=== PATIENT | male | born 1980 | race African-American/Black ===

== ENCOUNTER 2021-01-21 08:53 | Outpatient (CLI) | payer OTHER | END 2021-01-21 08:54 | disposition home or self-care (01) | LOC: CSHRAD 08:53 | PROVIDERS: ATTEND Psychiatry & Neurology Neurology | DX: M54.5 Low back pain (principal); M47.816 Spondylosis without myelopathy or radiculopathy, lumbar region; Z98.890 Other specified postprocedural states | CPT/HCPCS: 72100 ==

== ENCOUNTER 2022-10-11 14:18 | Emergency (ER) | payer MEDICARE ==
[2022-10-11 14:47] LABS: Bilirubin Neg (Negative); Blood, Urine 10 (Negative); Clarity Clear (Clear); Glucose, Urine (Dipstick) Normal (Negative); Ketone, Urine Negative (Negative); Leukocyte Negative (Negative); Nitrite Negative (Negative); Protein, Urine (Dipstick) 30 mg/dl (Neg-Trace)
[2022-10-11 14:55] LABS: Amphetamine Not Detected (NotDetected); Bacteria/HPF None Seen HPF (None Seen); Barbiturates Screen Not Detected (NotDetected); Benzodiazepine Screen Not Detected (NotDetected); Cocaine Metabolite Screen Not Detected (NotDetected); Methadone Not Detected (NotDetected); Methamphetamine Not Detected (NotDetected); Opiate Screen Not Detected (NotDetected); Oxycodone Screen Not Detected (NotDetected); Phencyclidine (PCP) Not Detected (NotDetected); RBC/HPF 0-3 HPF (0-3); Squamous Epithelial 0-3 HPF (0-3); THC/Cannabinoid Screen Not Detected (NotDetected); Tricyclic Screen Not Detected (NotDetected); WBC/HPF None Seen HPF (0-3)
[2022-10-11 15:22] LABS: #Basophils 0.1 10x3/uL (0.0-0.2); #Eosinphils 0.1 10x3/uL (0.0-0.5); #Monocytes 0.8 10x3/uL (0.0-1.1); #Neutrophils 7.5 10x3/uL (1.5-8.4); %Basophils 0.4 % (0.0-2.0); %Eosinophils 0.6 % (0.0-6.0); %Lymphocytes 24.5 % (18.0-47.0); %Monocytes 7.5 % (0.0-10.0); %Neutrophils 66.8 % (40.0-75.0); Hemoglobin 14.6 g/dL (13.5-17.5); Mean Corpuscular HGB CONC 31.7 g/dL (32.0-36.0); Mean Corpuscular Hemoglobin 23.1 pg (27.0-33.0); Mean Corpuscular Volume 72.9 fl (81.2-95.1); Mean Platelet Volume 10.4 fl (7.4-10.4); Platelet Count 295 10x3/uL (150-450); RBC Distribution Width 14.9 % (11.5-14.5); Red Blood Cell (RBC) Count 6.32 10x6/uL (4.32-5.72); White Blood Cell (WBC) Count 11.3 10x3/uL (3.5-10.5)
[2022-10-11 15:40] LABS: Acetaminophen Less than 10.0 mcg/mL (10.0-30.0); Alcohol Less than 10 mg/dL (Less than 10); Salicylate Less than 8.0 mg/dL (15.0-30.0)
[2022-10-11 15:42] LABS: ALT (SGPT) 42 U/L (8-55); AST (SGOT) 35 U/L (5-34); Albumin 4.4 g/dL (3.5-5.0); Alkaline Phosphatase 49 U/L (40-110); Anion Gap 15 mmol/L (10-20); BUN (Urea Nitrogen) 13 mg/dL (8.9-20.6); Bilirubin, Total 0.9 mg/dL (0.2-1.2); Calc. Creatinine Clearance 0 mL/min (70-130); Calcium 9.6 mg/dL (7.8-10.44); Carbon Dioxide 27 mmol/L (22-29); Chloride 103 mmol/L (98-107); Estimated GFR 60; Globulin 3.6 g/dL (2.4-3.5); Glucose 156 mg/dL (70-105); Potassium 5.2 mmol/L (3.5-5.1); Sodium 140 mmol/L (136-145)
[2022-10-11] MEDS ORDERED: Ketamine 50 MG/ML (10ML VIAL) ONE (17:54)
== END 2022-10-11 21:48 ==
LOC: CSHERS 14:18
DX: R45.851 Suicidal ideations (principal)
CPT/HCPCS: 80053; 80306; 80307; 81003; 81015; 84443; 85025; 99285

== ENCOUNTER 2023-12-29 13:08 | Emergency (ER) | payer MEDICARE ==
[2023-12-29] MEDS ORDERED: Colchicine 0.6 MG TAB ONE (14:05)
[2023-12-29] MEDS ORDERED: predniSONE 20 MG TAB ONE (14:06)
[2023-12-29] MEDS ORDERED: traMADol HCl 50 MG TAB ONE (14:06)
[2023-12-29] MEDS ORDERED: predniSONE 50 MG TAB PO SCH (14:15)
== END 2023-12-29 14:11 | disposition home or self-care (01) ==
LOC: CSHERS 13:08
DX: M10.9 Gout, unspecified (principal); E11.9 Type 2 diabetes mellitus without complications; Z79.85 Long-term (current) use of injectable non-insulin antidiabetic drugs
CPT/HCPCS: 99283; J7512